=== PATIENT | male | born 1970 | race Caucasian/White ===

== ENCOUNTER 2020-10-30 06:25 | Outpatient (REF) | payer OTHER, SELFPAY ==
[2020-10-30 07:15] LABS: MANUAL DIFF FLAG NO
[2020-10-30 07:32] LABS: Estimated Average Glucose 94 mg/dL; Hemoglobin A1c % 4.9 %
[2020-10-30 07:34] LABS: Alanine Aminotransferase 29 U/L (0-40); Albumin Level 4.5 g/dL (3.5-5.0); Alkaline Phosphatase 61 U/L (39-117); Anion Gap 11 (12-20); Aspartate Amino Transferase 19 U/L (5-37); Bilirubin Total 0.5 mg/dL (0.0-1.0); Blood Urea Nitrogen 23 mg/dL (9-16); Calcium 8.9 mg/dL (8.4-10.2); Carbon Dioxide 28 mmol/L (22-29); Chloride 108 mmol/L (96-108); Cholesterol 230 mg/dL; Estimated Glomerular Filt Rate > 60; Glucose Fasting 116 mg/dL (60-99); HDL Cholesterol 52 mg/dL; LDL Cholesterol Calculated 163 mg/dl; Potassium 4.3 mmol/l (3.3-5.1); Sodium 143 mmol/L (135-145); Total Protein 7.1 g/dL (6.5-8.0); Triglycerides 75 mg/dL
[2020-10-30 07:35] LABS: Basophils Percent Auto 0.2 % (0-2); Eosinophils Absolute Auto 0.1 X10*3/uL (0.0-0.4); Eosinophils Percent Auto 1.8 % (0-4); Hematocrit 42.2 % (42-52); Imm Gran Abs Auto 0.01 X10*3/uL (0.00-0.03); Imm Gran Pct Auto 0.2 % (0.0-0.4); Lymphocytes Absolute Auto 1.4 X10*3/uL (1.2-4.9); Lymphocytes Percent Auto 27.7 % (20-40); Mean Corpuscular HGB Conc 33.2 g/dl (31.0-36.0); Mean Corpuscular Hemoglobin 29.6 pg (27.0-33.0); Mean Corpuscular Volume 89.2 fL (80-98); Mean Platelet Volume 10.4 fL (9.4-12.4); Monocytes Absolute Auto 0.5 X10*3/uL (0.1-1.2); Monocytes Percent Auto 10.4 % (2-11); Neutrophils Absolute Auto 2.9 X10*3/uL (2.0-8.3); Neutrophils Percent Auto 59.7 % (45-73); Platelet Count 194 X10*3/uL (160-400); Red Blood Count 4.73 X10*6/uL (4.60-5.80); Red Cell Distribution Width 12.3 % (11.0-16.0); White Blood Count 4.9 X10*3/uL (4.8-10.8)
[2020-10-30 07:43] LABS: Glucose Urine UA NEG (NEG); Leukocyte Esterase Urine NEG (NEG); Nitrite Urine NEG (NEG); PH 5.5 (5.0-8.0); Specific Gravity - Urine >= 1.030 (1.005-1.025); Urine Blood 3+ (NEG); Urine Ketones NEG (NEG); Urine Protein NEG (NEG-TRACE)
[2020-10-30 07:46] LABS: Appearance Urine CLEAR; Color Urine YELLOW
[2020-10-30 07:55] LABS: Prostate Specific Antigen 0.64 ng/mL (<0.05-4.0)
[2020-10-30 08:02] LABS: WBC Urine 0 /HPF (0-4)
[2020-10-30 08:03] LABS: Hyaline Casts Urine 0-2 /LPF; Mucus Urine TRACE /LPF
[2020-10-30 08:22] LABS: Creatinine Urine 206.17 mg/dL
== END 2020-10-30 06:26 | disposition home or self-care (01) ==
LOC: HO.LAB 06:25
PROVIDERS: Visit Provider Internal Medicine
DX: Z00.00 Encounter for general adult medical examination without abnormal findings (principal); D64.9 Anemia, unspecified; R31.9 Hematuria, unspecified; R79.89 Other specified abnormal findings of blood chemistry; R73.03 Prediabetes; E78.00 Pure hypercholesterolemia, unspecified; Z12.5 Encounter for screening for malignant neoplasm of prostate
CPT/HCPCS: 36415; 80053; 80061; 81001; 82043; 83036; 84153; 85025

== ENCOUNTER 2021-11-12 10:37 | Outpatient (REF) | payer OTHER, SELFPAY ==
[2021-11-12 10:43] LABS: MANUAL DIFF FLAG NO
[2021-11-12 11:02] LABS: Basophils Percent Auto 0.2 % (0-2); Eosinophils Absolute Auto 0.1 X10*3/uL (0.0-0.4); Eosinophils Percent Auto 2.4 % (0-4); Hematocrit 38.4 % (42.0-52.0); Hemoglobin 12.8 g/dl (14.0-18.0); Imm Gran Abs Auto 0.01 X10*3/uL (0.00-0.03); Imm Gran Pct Auto 0.2 % (0.0-0.4); Lymphocytes Absolute Auto 1.2 X10*3/uL (1.2-4.9); Lymphocytes Percent Auto 25.9 % (20-40); Mean Corpuscular HGB Conc 33.3 g/dl (31.0-36.0); Mean Corpuscular Hemoglobin 29.6 pg (27.0-33.0); Mean Corpuscular Volume 88.9 fL (80.0-98.0); Monocytes Absolute Auto 0.5 X10*3/uL (0.1-1.2); Monocytes Percent Auto 10.3 % (2-11); Neutrophils Absolute Auto 2.8 x10*3/uL (2.0-8.3); Platelet Count 185 X10*3/uL (160-400); Red Blood Count 4.32 X10*6/uL (4.60-5.80); Red Cell Distribution Width 12.6 % (11.0-16.0); White Blood Count 4.6 X10*3/uL (4.8-10.8)
[2021-11-12 11:06] LABS: Appearance Urine CLEAR; Color Urine YELLOW; Glucose Urine UA NEG (NEG); Leukocyte Esterase Urine NEG (NEG); Nitrite Urine NEG (NEG); Specific Gravity - Urine 1.025 (1.005-1.025); Urine Blood 3+ (NEG); Urine Ketones NEG (NEG); Urine Protein TRACE MG/DL (NEG-TRACE)
[2021-11-12 11:27] LABS: WBC Urine 0 /HPF (0-4)
[2021-11-12 11:28] LABS: Squamous Epithelial Cell Urine TRACE /LPF
[2021-11-12 11:41] LABS: Alanine Aminotransferase 32 U/L (0-40); Albumin Level 4.1 g/dL (3.5-5.0); Alkaline Phosphatase 57 U/L (39-117); Anion Gap 14 (12-20); Aspartate Amino Transferase 23 U/L (5-37); Bilirubin Total 0.5 mg/dL (0.0-1.0); Blood Urea Nitrogen 20 mg/dL (9-16); Calcium 9.1 mg/dL (8.4-10.2); Carbon Dioxide 25 mmol/L (22-29); Chloride 106 mmol/L (96-108); Cholesterol 234 mg/dL; Estimated Glomerular Filt Rate 53; Glucose Fasting 104 mg/dL (60-99); HDL Cholesterol 45 mg/dL; LDL Cholesterol Calculated 160 mg/dl; Potassium 4.2 mmol/L (3.3-5.1); Sodium 141 mmol/L (135-145); Total Protein 6.7 g/dL (6.5-8.0); Triglycerides 146 mg/dL
[2021-11-12 11:42] LABS: Microalbum/Creatinine Ratio Ur 50.8 ug/mg cr
[2021-11-12 11:55] LABS: Estimated Average Glucose 97 mg/dL
[2021-11-12 12:18] LABS: PSA,Total (Free>4and<10) 0.46 ng/mL (0.00-4.00)
== END 2021-11-12 10:38 | disposition home or self-care (01) ==
LOC: HO.LNP 10:37
PROVIDERS: PCP Internal Medicine; Visit Provider Internal Medicine
DX: Z00.00 Encounter for general adult medical examination without abnormal findings (principal); R73.03 Prediabetes; E78.00 Pure hypercholesterolemia, unspecified
CPT/HCPCS: 80053; 80061; 81001; 81003; 82043; 83036; 84153; 85025

== ENCOUNTER 2022-11-14 11:47 | Outpatient (REF) | payer OTHER, SELFPAY ==
[2022-11-14 11:50] LABS: MANUAL DIFF FLAG NO
[2022-11-14 12:24] LABS: Basophils Percent Auto 0.5 % (0-2); Eosinophils Absolute Auto 0.1 X10*3/uL (0.0-0.4); Eosinophils Percent Auto 2.6 % (0-4); Hematocrit 39.8 % (42.0-52.0); Imm Gran Abs Auto 0.01 X10*3/uL (0.00-0.03); Imm Gran Pct Auto 0.3 % (0.0-0.4); Lymphocytes Absolute Auto 1.2 X10*3/uL (1.2-4.9); Lymphocytes Percent Auto 29.8 % (20-40); Mean Corpuscular HGB Conc 32.7 g/dl (31.0-36.0); Mean Corpuscular Hemoglobin 29.1 pg (27.0-33.0); Mean Corpuscular Volume 89.2 fL (80.0-98.0); Mean Platelet Volume 10.9 fL (9.4-12.4); Monocytes Absolute Auto 0.5 X10*3/uL (0.1-1.2); Monocytes Percent Auto 11.9 % (2-11); Neutrophils Absolute Auto 2.1 x10*3/uL (2.0-8.3); Neutrophils Percent Auto 54.9 % (45-73); Platelet Count 177 X10*3/uL (160-400); Red Blood Count 4.46 X10*6/uL (4.60-5.80); Red Cell Distribution Width 12.5 % (11.0-16.0); White Blood Count 3.9 X10*3/uL (4.8-10.8)
[2022-11-14 12:26] LABS: Appearance Urine Clear; Color Urine Yellow; Glucose Urine UA Negative (Negative); Leukocyte Esterase Urine Negative (Negative); Nitrite Urine Negative (Negative); PH 5.5 (5.0-9.0); Specific Gravity - Urine 1.025 (1.005-1.025); UMIC TRIGGER UACC YES; Urine Blood Moderate (2+) (Negative); Urine Ketones Negative (Negative); Urine Protein Trace mg/dL (Neg-Trace)
[2022-11-14 12:30] LABS: Bacteria Urine None Seen (None Seen); Hyaline Casts Urine 0-2 /LPF (0-2); Squamous Epithelial Cell Urine 0-2 /HPF (0-2); WBC Urine 0-5 /HPF (0-5)
[2022-11-14 12:40] LABS: Estimated Average Glucose 97 mg/dL
[2022-11-14 12:52] LABS: Alanine Aminotransferase 29 U/L (0-40); Albumin Level 4.2 g/dL (3.5-5.0); Alkaline Phosphatase 53 U/L (39-117); Anion Gap 13 (12-20); Aspartate Amino Transferase 24 U/L (5-37); Blood Urea Nitrogen 26 mg/dL (9-16); Calcium 8.9 mg/dL (8.4-10.2); Carbon Dioxide 25 mmol/L (22-29); Chloride 108 mmol/L (96-108); Cholesterol 218 mg/dL; Estimated Glomerular Filt Rate 50; Glucose Fasting 119 mg/dL (60-99); HDL Cholesterol 48 mg/dL; LDL Cholesterol Calculated 153 mg/dl; Sodium 142 mmol/L (135-145); Total Protein 6.5 g/dL (6.5-8.0); Triglycerides 86 mg/dL
[2022-11-14 13:09] LABS: PSA,Total (Free>4and<10) 0.38 ng/mL (0.00-4.00)
[2022-11-14 13:46] LABS: Microalbum/Creatinine Ratio Ur 35.7 ug/mg cr
== END 2022-11-14 11:48 | disposition home or self-care (01) ==
LOC: HO.LNP 11:47
PROVIDERS: Visit Provider Internal Medicine
DX: Z00.00 Encounter for general adult medical examination without abnormal findings (principal); Z12.5 Encounter for screening for malignant neoplasm of prostate; R73.03 Prediabetes; E78.00 Pure hypercholesterolemia, unspecified
CPT/HCPCS: 80053; 80061; 81001; 81003; 82043; 83036; 84153; 85025

== ENCOUNTER 2022-12-18 10:49 | Outpatient (REF) | payer OTHER, SELFPAY ==
[2022-12-18 10:54] LABS: MANUAL DIFF FLAG NO
[2022-12-18 11:08] LABS: Basophils Percent Auto 0.4 % (0-2); Eosinophils Absolute Auto 0.1 X10*3/uL (0.0-0.4); Eosinophils Percent Auto 2.4 % (0-4); Hemoglobin 12.9 g/dl (14.0-18.0); Imm Gran Abs Auto 0.03 X10*3/uL (0.00-0.03); Imm Gran Pct Auto 0.6 % (0.0-0.4); Lymphocytes Absolute Auto 1.3 X10*3/uL (1.2-4.9); Lymphocytes Percent Auto 23.4 % (20-40); Mean Corpuscular HGB Conc 32.3 g/dl (31.0-36.0); Mean Corpuscular Hemoglobin 28.4 pg (27.0-33.0); Mean Corpuscular Volume 87.9 fL (80.0-98.0); Monocytes Absolute Auto 0.5 X10*3/uL (0.1-1.2); Monocytes Percent Auto 9.9 % (2-11); Neutrophils Absolute Auto 3.4 x10*3/uL (2.0-8.3); Neutrophils Percent Auto 63.3 % (45-73); Platelet Count 176 X10*3/uL (160-400); Red Blood Count 4.55 X10*6/uL (4.60-5.80); Red Cell Distribution Width 12.3 % (11.0-16.0); White Blood Count 5.4 X10*3/uL (4.8-10.8)
[2022-12-18 11:12] LABS: Blood Urea Nitrogen 21 mg/dL (9-16); Estimated Glomerular Filt Rate 52
== END 2022-12-18 10:50 | disposition home or self-care (01) ==
LOC: HO.LNP 10:49
PROVIDERS: Visit Provider Internal Medicine
DX: D70.9 Neutropenia, unspecified (principal); R79.9 Abnormal finding of blood chemistry, unspecified
CPT/HCPCS: 82565; 84520; 85025

== ENCOUNTER 2023-10-20 11:37 | Outpatient (REF) | payer OTHER, SELFPAY ==
[2023-10-20 11:41] LABS: MANUAL DIFF FLAG NO
[2023-10-20 12:00] LABS: Basophils Percent Auto 0.3 % (0-2); Eosinophils Absolute Auto 0.1 X10*3/uL (0.0-0.4); Hematocrit 40.1 % (42.0-52.0); Hemoglobin 13.5 g/dl (14.0-18.0); Imm Gran Abs Auto 0.04 X10*3/uL (0.00-0.03); Imm Gran Pct Auto 0.6 % (0.0-0.4); Lymphocytes Absolute Auto 1.5 X10*3/uL (1.2-4.9); Lymphocytes Percent Auto 23.1 % (20-40); Mean Corpuscular HGB Conc 33.7 g/dl (31.0-36.0); Mean Corpuscular Hemoglobin 29.5 pg (27.0-33.0); Mean Corpuscular Volume 87.7 fL (80.0-98.0); Mean Platelet Volume 11.1 fL (9.4-12.4); Monocytes Absolute Auto 0.6 X10*3/uL (0.1-1.2); Monocytes Percent Auto 9.9 % (2-11); Neutrophils Absolute Auto 4.1 x10*3/uL (2.0-8.3); Neutrophils Percent Auto 64.1 % (45-73); Platelet Count 187 X10*3/uL (160-400); Red Blood Count 4.57 X10*6/uL (4.60-5.80); Red Cell Distribution Width 12.6 % (11.0-16.0); White Blood Count 6.4 X10*3/uL (4.8-10.8)
[2023-10-20 12:03] LABS: Appearance Urine Clear; Color Urine Yellow; Glucose Urine UA Negative (Negative); Leukocyte Esterase Urine Negative (Negative); Nitrite Urine Negative (Negative); PH 5.5 (5.0-9.0); UMIC TRIGGER UACC YES; Urine Blood Moderate (2+) (Negative); Urine Ketones Negative (Negative); Urine Protein Negative (Neg-Trace)
[2023-10-20 12:08] LABS: Bacteria Urine None Seen (None Seen); Hyaline Casts Urine 0-2 /LPF (0-2); Squamous Epithelial Cell Urine 0-2 /HPF (0-2); WBC Urine 0-5 /HPF (0-5)
[2023-10-20 12:14] LABS: Estimated Average Glucose 97 mg/dL
[2023-10-20 12:30] LABS: Alanine Aminotransferase 29 U/L (0-40); Albumin Level 4.3 g/dL (3.5-5.0); Alkaline Phosphatase 58 U/L (39-117); Anion Gap 13 (12-20); Aspartate Amino Transferase 23 U/L (5-37); Bilirubin Total 0.7 mg/dL (0.0-1.0); Blood Urea Nitrogen 29 mg/dL (9-16); Carbon Dioxide 27 mmol/L (22-29); Chloride 104 mmol/L (96-108); Cholesterol 248 mg/dL (<200); Estimated Glomerular Filt Rate 54; Glucose Fasting 101 mg/dL (60-99); HDL Cholesterol 45 mg/dL (>40); LDL Cholesterol Calculated 164 mg/dL (<100); Sodium 140 mmol/L (135-145); Total Protein 7.2 g/dL (6.5-8.0); Triglycerides 195 mg/dL (<150)
[2023-10-20 12:33] LABS: Creatinine Urine 144.13 mg/dL; Microalbum/Creatinine Ratio Ur 30.5 ug/mg cr (<30)
[2023-10-20 12:50] LABS: PSA,Total (Free>4and<10) 0.54 ng/mL (0.00-4.00)
== END 2023-10-20 11:38 | disposition home or self-care (01) ==
LOC: HO.LNP 11:37
PROVIDERS: Visit Provider Internal Medicine
DX: Z00.00 Encounter for general adult medical examination without abnormal findings (principal); Z12.5 Encounter for screening for malignant neoplasm of prostate; R73.03 Prediabetes; E78.00 Pure hypercholesterolemia, unspecified; D70.9 Neutropenia, unspecified; N40.0 Benign prostatic hyperplasia without lower urinary tract symptoms
CPT/HCPCS: 80053; 80061; 81001; 82043; 82570; 83036; 84153; 85025

== ENCOUNTER 2024-01-26 11:03 | Outpatient (REF) | payer OTHER, SELFPAY ==
[2024-01-26 12:31] LABS: Blood Urea Nitrogen 19 mg/dL (9-16); Estimated Glomerular Filt Rate 57
== END 2024-01-26 11:04 | disposition home or self-care (01) ==
LOC: HO.LNP 11:03
PROVIDERS: Visit Provider Internal Medicine
DX: R79.9 Abnormal finding of blood chemistry, unspecified (principal)
CPT/HCPCS: 82565; 84520

== ENCOUNTER 2024-08-08 10:44 | Outpatient (REF) | payer OTHER, SELFPAY ==
[2024-08-08 12:06] LABS: Estimated Average Glucose 105 mg/dL; Hemoglobin A1C 112.5891 umol/L; Hemoglobin A1c % 5.3 % (<6.0); Total Hemoglobin (HGBA1C) 3298.9661 umol/L
[2024-08-08 12:41] LABS: Alanine Aminotransferase 63 U/L (0-40); Albumin Level 4.2 g/dL (3.5-5.0); Alkaline Phosphatase 60 U/L (39-117); Aspartate Amino Transferase 42 U/L (5-37); Bilirubin Direct 0.2 mg/dL (0.0-0.5); Bilirubin Total 0.6 mg/dL (0.0-1.0); Cholesterol 177 mg/dL (<200); Glucose Fasting 109 mg/dL (60-99); HDL Cholesterol 45 mg/dL (>40); LDL Cholesterol Calculated 96 mg/dL (<100); Total Protein 6.8 g/dL (6.5-8.0); Triglycerides 182 mg/dL (<150)
[2024-08-08 13:25] LABS: Reflex LDLD? No
== END 2024-08-08 10:45 | disposition home or self-care (01) ==
LOC: HO.LNP 10:44
PROVIDERS: Visit Provider Internal Medicine
DX: R73.03 Prediabetes (principal); E78.00 Pure hypercholesterolemia, unspecified
CPT/HCPCS: 80061; 80076; 82947; 83036

== ENCOUNTER 2024-10-24 12:02 | Outpatient (REF) | payer OTHER, SELFPAY ==
[2024-10-24 12:10] LABS: MANUAL DIFF FLAG NO
[2024-10-24 12:31] LABS: Appearance Urine Clear; Color Urine Yellow; Glucose Urine UA Negative (Negative); Leukocyte Esterase Urine Negative (Negative); Nitrite Urine Negative (Negative); PH 5.5 (5.0-9.0); Specific Gravity - Urine 1.015 (1.005-1.025); UMIC TRIGGER UACC YES; Urine Blood Moderate (2+) (Negative); Urine Ketones Negative (Negative); Urine Protein Negative (Neg-Trace)
[2024-10-24 12:33] LABS: Basophils Percent Auto 0.4 % (0-2); Eosinophils Absolute Auto 0.1 X10*3/uL (0.0-0.4); Eosinophils Percent Auto 2.1 % (0-4); Hematocrit 42.6 % (42.0-52.0); Hemoglobin 14.3 g/dl (14.0-18.0); Imm Gran Abs Auto 0.02 X10*3/uL (0.00-0.03); Imm Gran Pct Auto 0.4 % (0.0-0.4); Lymphocytes Absolute Auto 1.6 X10*3/uL (1.2-4.9); Lymphocytes Percent Auto 28.4 % (20-40); Mean Corpuscular HGB Conc 33.6 g/dl (31.0-36.0); Mean Corpuscular Hemoglobin 29.6 pg (27.0-33.0); Mean Corpuscular Volume 88.2 fL (80.0-98.0); Mean Platelet Volume 10.6 fL (9.4-12.4); Monocytes Absolute Auto 0.5 X10*3/uL (0.1-1.2); Monocytes Percent Auto 8.2 % (2-11); Neutrophils Absolute Auto 3.4 x10*3/uL (2.0-8.3); Neutrophils Percent Auto 60.5 % (45-73); Platelet Count 196 X10*3/uL (160-400); Red Blood Count 4.83 X10*6/uL (4.60-5.80); Red Cell Distribution Width 12.3 % (11.0-16.0); White Blood Count 5.6 X10*3/uL (4.8-10.8)
[2024-10-24 12:36] LABS: Bacteria Urine None Seen (None Seen); Hyaline Casts Urine 0-2 /LPF (0-2); Squamous Epithelial Cell Urine 0-2 /HPF (0-2); WBC Urine 0-5 /HPF (0-5)
[2024-10-24 12:54] LABS: Alanine Aminotransferase 39 U/L (0-40); Albumin Level 4.3 g/dL (3.5-5.0); Alkaline Phosphatase 61 U/L (39-117); Anion Gap 11 (12-20); Aspartate Amino Transferase 27 U/L (5-37); Bilirubin Total 0.8 mg/dL (0.0-1.0); Blood Urea Nitrogen 31 mg/dL (9-16); Calcium 9.1 mg/dL (8.4-10.2); Carbon Dioxide 25 mmol/L (22-29); Chloride 107 mmol/L (96-108); Cholesterol 189 mg/dL (<200); Estimated Glomerular Filt Rate 50; Glucose Fasting 107 mg/dL (60-99); HDL Cholesterol 41 mg/dL (>40); LDL Cholesterol Calculated 119 mg/dL (<100); Potassium 4.2 mmol/L (3.3-5.1); Sodium 139 mmol/L (135-145); Total Protein 7.2 g/dL (6.5-8.0); Triglycerides 148 mg/dL (<150)
[2024-10-24 13:08] LABS: Estimated Average Glucose 103 mg/dL; Hemoglobin A1C 123.8151 umol/L; Hemoglobin A1c % 5.2 % (<6.0); Total Hemoglobin (HGBA1C) 3750.8208 umol/L
[2024-10-24 13:09] LABS: Creatinine Urine 137.27 mg/dL; Microalbum/Creatinine Ratio Ur 40.7 ug/mg cr (<30)
[2024-10-24 13:16] LABS: PSA,Total (Free>4and<10) 0.51 ng/mL (0.00-4.00)
--- OUTSIDE RECORDS SUMMARY | 2024-10-24 13:59 | XMS_ITS ---
Author Organization Ramón Lieberman MD Address [address] [place], [place] [id number] Care Team Providers Care Supervisor [employer] Name Role Phone Ramón Lieberman Primary Care Provider RESULTS Component Value Reference Range Notes Complete Blood Count Auto Di ff (Not yet reviewed by provider) Interpretation: Performing Lab:[facility], [address] [place] [phone] Notes/Report: White Blood Count 5.6 4.8-10.8 X10*3/uL Red Blood Count 4.83 4.60-5.80 X10*6/uL Hemoglobin 14.3 14.0-18.0 g/dl Hematocrit 42.6 42.0-52.0 % Mean Corpuscular Volume 88.2 80.0-98.0 fL Mean Corpuscular Hemoglobin 29.6 27.0-33.0 pg Mean Corpuscular HGB Conc 33.6 31.0-36.0 g/dl Red Cell Distribution Width 12.3 11.0-16.0 % Platelet Count 196 160-400 X10*3/uL Mean Platelet Volume 10.6 9.4-12.4 fL Neutrophils Percent Auto 60.5 45-73 % Imm Gran Pct Auto 0.4 0.0-0.4 % Lymphocytes Percent Auto 28.4 20-40 % Monocytes Percent Auto 8.2 2-11 % Eosinophils Percent Auto 2.1 0-4 % Basophils Percent Auto 0.4 0-2 % NRBC Pct Auto 0.0 0.0-0.2 /100WBC Neutrophils Absolute Auto 3.4 2.0-8.3 x10*3/u L Imm Gran Abs Auto 0.02 0.00-0.03 X10*3/uL Lymphocytes Absolute Auto 1.6 1.2-4.9 X10*3/u L Monocytes Absolute Auto 0.5 0.1-1.2 X10*3/uL Eosinophils Absolute Auto 0.1 0.0-0.4 X10*3/u L Basophils Absolute Auto 0.0 0.0-0.2 X10*3/uL NRBC Abs Auto 0.000 0.0-0.012 X10*3/uL Comprehensive Sherrill. Panel Fa st (Not yet reviewed by provider) Interpretation: Performing Lab:[facility], [address] [place] [phone] Notes/Report: Sodium 139 135-145 mmol/L Potassium 4.2 3.3-5.1 mmol/L Chloride 107 96-108 mmol/L Carbon Dioxide 25 22-29 mmol/L Anion Gap 11 12-20 Blood Urea Nitrogen 31 9-16 mg/dL Creatinine 1.46 0.5-1.4 mg/dL Estimated Glomerular Filt Rate 50 Chronic Kidney Disease: Estimated GFR < 60 mL/min/1.73m2 Severe Kidney Disease: Estimated GFR < 15 mL/min/1.73m2 Glucose Fasting 107 60-99 mg/dL A fasting glucose from 100-125 mg/dl is considered impaired (pre-diabetes). Calcium 9.1 8.4-10.2 mg/dL Bilirubin Total 0.8 0.0-1.0 mg/dL Aspartate Amino Transferase 27 5-37 U/L Alanine Aminotransferase 39 0-40 U/L Total Protein 7.2 6.5-8.0 g/dL Albumin Level 4.3 3.5-5.0 g/dL Alkaline Phosphatase 61 39-117 U/L Lipid Panel (Not yet reviewe d by provider) Interpretation: Performing Lab:[facility], [address] [place] [phone] Notes/Report: Triglycerides 148 <150 mg/dL Desirable Triglyceride: less than 150 mg/dL Borderline High Triglyceride 150-199 mg/dL High Triglyceride: 200-499 mg/dL Very High Triglyceride: greater than or equal to 5OO mg/dL Cholesterol 189 <200 mg/dL Desirable Cholesterol: less than 200 mg/dL Borderline High Cholesterol: 200-239 mg/dL High Cholesterol: greater than 239 mg/dL LDL Cholesterol Calculated 119 <100 mg/dL Desirable LDL: less than 100 mg/dL Near Optimal/Above Optimal LDL: 110-129 mg/dL Borderline High LDL: 130-159 mg/dL High LDL: 160-189 mg/dL Very High LDL: greater than or equal to 190 mg/dL HDL Cholesterol 41 >40 mg/dL Desirable HDL: greater than 40 mg/dL Note: This HDL assay may give artificially low results in patients with liver disease. PSA,Total (Free>4and<10) (No t yet reviewed by provider) Interpretation: Performing Lab:[address] [phone] Notes/Report: PSA,Total (Free>4and<10) 0.51 0.00-4.00 ng/mL A Free PSA was not performed: The percentage of Free PSA can be used to enhance the differentiation of prostate cancer from benign prostatic disease in subjects whose PSA levels are between 4.0 and 10.0 ng/mL. For subjects whose PSA levels are below 4.0 or above 10.0 ng/mL, the risk of prostate cancer is determined on the basis of the PSA alone. Therefore the % Free PSA is recommended only for those subjects whose PSA levels are between 4.0 and 10.0 ng/mL. PSA methodology: Juarez Alinity i Chemiluminescent Microparticle Immunoassay (CMIA) Microalbumin, Random (Not ye t reviewed by provider) Interpretation: Performing Lab:[address] [phone] Notes/Report: Creatinine Urine 137.27 Microalbumin Urine 56.0 Microalbum/Creatinine Ratio Ur 40.7 <30 ug/mg cr Albumin/Creatinine Ratio Reference Ranges: Normal: < 30 ug/mg creatinine Microalbuminuria: 30 - 300 ug/mg creatinine Clinical Albuminuria: > 300 ug/mg creatinine Hemoglobin A1c (Not yet revi ewed by provider) Interpretation: Performing Lab:[facility], [address] [place] [phone] Notes/Report: Hemoglobin A1c % 5.2 <6.0 % Hemoglobin A1C Reference Range Adults: 4.8 - 6.0 % Non diabetic: < 6.0 % Goal: < 7.0 % Additional Action Suggested: > 8.0 % Note: Hemoglobin A1c results are invalid for patients with abnormal amounts of HbF. Blood transfusions may impact the HbA1c concentration in the patient sample. Estimated Average Glucose 103 eAG = Estimated average glucose which is %A1C expressed as average glucose, using the formula of the K9B-Fgqinxp Average Glucose study (ADAG), Diabetes Care, Vol.31,#8, 2007 UA ClnCatch+Micro w/rflx Cul t (Not yet reviewed by provider) Interpretation: Performing Lab:[facility], [address] [place] [phone] Notes/Report: Urine, Clean Catch Color Urine Yellow Appearance Urine Clear PH 5.5 5.0-9.0 Glucose Urine UA Negative Negative mg/dL Urine Blood Moderate (2+) Negative Specific [place] - Urine 1.015 1.005-1.025 Urine Protein Negative Neg-Trace mg/dL Urine Ketones Negative Negative mg/dL Nitrite Urine Negative Negative Leukocyte Esterase Urine Negative Negative RBC Urine 11-20 0-2 /HPF WBC Urine 0-5 0-5 /HPF Squamous Epithelial Cell Urine 0-2 0-2 /HPF Bacteria Urine None Seen None Seen Hyaline Casts Urine 0-2 0-2 /LPF REASON FOR VISIT yearly fasting labs Encounters Encounter Location Date Provider Diagnosis Ramón Lieberman MD [address] [place], [place] [phone] 10/24/2024 Ramón Lieberman Blood tests for rout ine general physical examination Z00.00 ; Pure hypercholesterolemia E78.00 ; Prediabetes R73.03 ; Neutropenia, unspecified type D70.9 and Prostatism N40.0 ASSESSMENTS Encounter Date Diagnosis Assessment Notes Treatment Notes Treatment Clinical Notes 10/24/2024 Blood tests for rout ine general physical examination (ICD-10 - Z00.00) 10/24/2024 Pure hypercholestero lemia (ICD-10 - E78.00) 10/24/2024 Prediabetes (ICD-10 - R73.03) 10/24/2024 Neutropenia, unspeci fied type (ICD-10 - D70.9) 10/24/2024 Prostatism (ICD-10 - N40.0) PLAN OF TREATMENT Pending Test Test Name Order Date Complete Blood Count Auto Diff 5 Comprehensive Sherrill. Panel Fast 5 Lipid Panel 10/24/2024 PSA,Total (Free>4and<10) 10/24/2024 Microalbumin, Random 10/24/2024 Hemoglobin A1c 10/24/2024 UA ClnCatch+Micro w/rflx Cult 10/24/2024 Next Appt Details Provider Name:Ramón mae, 10/31/2024 01:00:00 PM, [address] [place] [address], [address], [place], [phone],
--- OUTSIDE RECORDS SUMMARY | 2024-10-24 13:59 | XMS_ITS ---
Author Organization Ramón Lieberman MD Address [address] [place] [phone] Care Team Providers Care Newspaper Copy Editor Name Role Phone Ramón Lieberman Primary Care Provider ALLERGIES No Known Allergies REASON FOR VISIT 6 month MEDICATIONS Medication SIG (Take, Route, Frequency, Duration) Notes Start Date End Date Status Tamsulosin HCl 0.4 MG 1 capsule Orally O nce a day for 90 days 11/20/2022 Not-Taking Atorvastatin Calcium 20 MG 1 tablet Orally Once a day for 90 days 05/06/2024 Active VITAL SIGNS BMI 27.44 kg/m2 05/06/2024 Blood pressure systolic 104 mm Hg 05/06/20 24 Blood pressure diastolic 66 mm Hg 024 Height 66 in 05/06/2024 Weight 170 lbs 05/06/2024 Encounters Encounter Location Date Provider Diagnosis Ramón Lieberman MD [address] [place] [id number] 05/06/2024 Ramón Lieberman Pure hypercholestero lemia E78.00 and Elevated BUN R79.9 ASSESSMENTS Encounter Date Diagnosis Assessment Notes Treatment Notes Treatment Clinical Notes 05/06/2024 Pure hypercholestero lemia (ICD-10 - E78.00) eats poorly 05/06/2024 Elevated BUN (ICD-10 - R79.9) has come back down. will observe PLAN OF TREATMENT Medication Medication Name Sig Start Date Stop Date Notes Atorvastatin Calcium 20 MG 1 tablet Oral ly Once a day for 90 days 05/06/2024 Treatment Notes Assessment Notes Pure hypercholesterolemia eats poorly Elevated BUN has come back down. will observe Next Appt Details Provider Name:Ramón Phillips tu, 10/31/2024 01:00:00 PM, [address], [address], [place], [place], [phone], Progress Notes * Examination Category Sub-Category Detail Notes General Examination GENERAL APPEARANCE: alert, w ell hydrated, in no distress HEART: regular rate and rhy thm, no murmurs, rubs, gallops LUNGS: no wheezes, rales, r honchi, good air movement, clear to auscultation bilaterally SKIN: good turgor
--- OUTSIDE RECORDS SUMMARY | 2024-10-24 13:59 | XMS_ITS | Patient Health Record ---
Author Organization Ramón Lieberman MD Address [address] [place], [place] [phone] Care Team Providers Care Supervisor [employer] Name Role Phone Ramón Lieberman Primary Care Provider ALLERGIES No Known Allergies RESULTS Component Value Reference Range Notes Occult Blood, Stool, Guaiac Reviewed date:10/27/2023 03:39:12 PM Interpretation:Negative Performing Lab: Notes/Report: Negative Occult Blood, Stool, Guaiac Luis Carlos Stiles Reviewed date:01/26/2024 02:05:36 PM Interpretation: Performing Lab:[facility], [address] [place] [phone] Notes/Report: Luis Carlos Stiles See Note Specimen held untested for 24 hours; Call to request Chemistry testing. Blood Urea Nitrogen Reviewed date:01/26/2024 02:06:20 PM Interpretation: Performing Lab:[facility], [address] [place] [phone] Notes/Report: Blood Urea Nitrogen 19 9-16 mg/dL Creatinine Reviewed date:01/26/2024 02:05:53 PM Interpretation: Performing Lab:[facility], [address] [place] [phone] Notes/Report: Creatinine 1.31 0.5-1.4 mg/dL Estimated Glomerular Filt Rate 57 NOTE: For -[place] individuals, multiply the result by 1.210. Chronic Kidney Disease: Estimated GFR < 60 mL/min/1.73m2 Severe Kidney Disease: Estimated GFR < 15 mL/min/1.73m2 Luis Carlos Stiles Reviewed date:08/08/2024 01:02:04 PM Interpretation: Performing Lab:[facility], [address] [place] [phone] Notes/Report: Hold Gold See Note Specimen held untested for 24 hours; Call to request Chemistry testing. Liver Panel Reviewed date:08/08/2024 04:45:12 PM Interpretation: Performing Lab:[facility], [address] [place] [phone] Notes/Report: Bilirubin Total 0.6 0.0-1.0 mg/dL Bilirubin Direct 0.2 0.0-0.5 mg/dL Aspartate Amino Transferase 42 5-37 U/L Alanine Aminotransferase 63 0-40 U/L Total Protein 6.8 6.5-8.0 g/dL Albumin Level 4.2 3.5-5.0 g/dL Alkaline Phosphatase 60 39-117 U/L Glucose Fasting Reviewed date:08/08/2024 04:45:21 PM Interpretation: Performing Lab:[facility], [address] [place] [phone] Notes/Report: Glucose Fasting 109 60-99 mg/dL A fasting glucose from 100-125 mg/dl is considered impaired (pre-diabetes). Lipid Panel with Reflex Reviewed date:08/08/2024 04:45:41 PM Interpretation: Performing Lab:[facility], [address] [place] [phone] Notes/Report: Triglycerides 182 <150 mg/dL Desirable Triglyceride: less than 150 mg/dL Borderline High Triglyceride 150-199 mg/dL High Triglyceride: 200-499 mg/dL Very High Triglyceride: greater than or equal to 5OO mg/dL Cholesterol 177 <200 mg/dL Desirable Cholesterol: less than 200 mg/dL Borderline High Cholesterol: 200-239 mg/dL High Cholesterol: greater than 239 mg/dL LDL Cholesterol Calculated 96 <100 mg/dL Desirable LDL: less than 100 mg/dL Near Optimal/Above Optimal LDL: 110-129 mg/dL Borderline High LDL: 130-159 mg/dL High LDL: 160-189 mg/dL Very High LDL: greater than or equal to 190 mg/dL HDL Cholesterol 45 >40 mg/dL Desirable HDL: greater than 40 mg/dL Note: This HDL assay may give artificially low results in patients with liver disease. Hemoglobin A1c Reviewed date:08/08/2024 01:01:36 PM Interpretation: Performing Lab:[facility], [address] [place] [phone] Notes/Report: Hemoglobin A1c % 5.3 <6.0 % Hemoglobin A1C Reference Range Adults: 4.8 - 6.0 % Non diabetic: < 6.0 % Goal: < 7.0 % Additional Action Suggested: > 8.0 % Note: Hemoglobin A1c results are invalid for patients with abnormal amounts of HbF. Blood transfusions may impact the HbA1c concentration in the patient sample. Estimated Average Glucose 105 eAG = Estimated average glucose which is %A1C expressed as average glucose, using the formula of the M6C-Arqxkrl Average Glucose study (ADAG), Diabetes Care, Vol.31,#8, 2007 Complete Blood Count Auto Di ff (Not yet reviewed by provider) Interpretation: Performing Lab:[facility], [address] [place] [phone] Notes/Report: White Blood Count 5.6 4.8-10.8 X10*3/uL [...] NRBC Abs Auto 0.000 0.0-0.012 X10*3/uL Comprehensive Tiger. Panel Fa (Not yet reviewed by provider) Interpretation: Performing Lab:[facility], [address] [place] [phone] Notes/Report: Sodium 139 135-145 mmol/L Potassium 4.2 [...] yet reviewe d by provider) Interpretation: Performing Lab:[facility], [address] [place] [phone] Notes/Report: Triglycerides 148 <150 mg/dL Desirable Triglyceride: [...] t yet reviewed by provider) Interpretation: Performing Lab:[address] [phone] Notes/Report: PSA,Total (Free>4and<10) 0.51 0.00-4.00 ng/mL A [...] ye t reviewed by provider) Interpretation: Performing Lab:[address] [phone] Notes/Report: Creatinine Urine 137.27 Microalbumin Urine 56.0 Microalbum/Creatinine Ratio Ur 40.7 <30 ug/mg cr Albumin/Creatinine Ratio Reference Ranges: Normal: < 30 ug/mg creatinine Microalbuminuria: 30 - 300 ug/mg creatinine Clinical Albuminuria: > 300 ug/mg creatinine Hemoglobin A1c (Not yet revi ewed by provider) Interpretation: Performing Lab:[address] [phone] Notes/Report: Hemoglobin A1c % 5.2 <6.0 % [...] average glucose, using the formula of the T3X-Cqtpynx Average Glucose study (ADAG), Diabetes Care, Vol.31,#8, 2007 UA ClnCatch+Micro w/rflx Cul t (Not yet reviewed by provider) Interpretation: Performing Lab:[facility], [address] [place] [phone] Notes/Report: Urine, Clean Catch Color Urine Yellow Appearance Urine Clear PH 5.5 5.0-9.0 Glucose Urine UA Negative Negative mg/dL Urine Blood Moderate (2+) Negative Specific [place] - Urine 1.015 1.005-1.025 Urine Protein Negative Neg-Trace mg/dL Urine Ketones Negative Negative mg/dL Nitrite Urine Negative Negative Leukocyte Esterase Urine Negative Negative RBC Urine 11-20 0-2 /HPF WBC Urine 0-5 0-5 /HPF Squamous Epithelial Cell Urine 0-2 0-2 /HPF Bacteria Urine None Seen None Seen Hyaline Casts Urine 0-2 0-2 /LPF REASON FOR REFERRAL No Information MEDICATIONS Medication SIG (Take, Route, Frequency, Duration) Notes Start Date End Date Status Tamsulosin HCl 0.4 MG 1 capsule Orally O nce a day for 90 days 11/20/2022 Not-Taking Atorvastatin Calcium 20 MG 1 tablet Orally Once a day for 90 days 05/06/2024 Active IMMUNIZATIONS Vaccine Route Administration Date Status Comme nts Flu Vaccine Unknown 07/11/2011 Administered Flu Vaccine IM Intramuscular 08/10/2012 Administered TDaP IM Intramuscular 05/16/2014 Administered Fluarix Quadrivalent Unknown 07/22/2018 Refused Fluarix Quadrivalent Unknown 10/25/2018 Refused Fluarix Quadrivalent Unknown 10/31/2019 Refused Fluarix Quadrivalent Unknown 08/23/2020 Refused Fluarix Quadrivalent Unknown 11/09/2020 Refused Fluarix Quadrivalent Unknown 11/18/2021 Refused Covid Vaccine Unknown 11/18/2021 Refused Tetanus Unknown 05/16/2014 Pending SOCIAL HISTORY Tobacco Use: Social History Observation Description Date Details (start date - stop date) Never Smoker NA - NA Sex Assigned At : Social History Observation Description Sex Assigned At Unknown Tobacco Use/Smoking Question Answer Notes Patient is a nonsmoker Additional Findings: Tobacco Non-User Cu rrent non-smoker, currently using no form of tobacco Alcohol Screen Question Answer Notes Did you have a drink contain ing alcohol in the past year? Yes How often did you have a dri nk containing alcohol in the past year? Monthly or less (1 point) How many drinks did you have on a typical day when you were drinking in the past year? 1 or 2 drinks (0 point) How often did you have 6 or more drinks on one occasion in the past year? Never (0 point) Points 1 Interpretation Negative PROBLEMS Problem Type ICD Code Onset Dates Problem Status W/U Status Risk SNOMED Code Notes Problem Prostatism (N40.0) Active confirmed 114 67572 Problem Neutropenia, unspecified type (D70.9) Active confirmed 390518864 Problem Prediabetes (R73.03) Active confirmed 7 22527182 Problem Pure hypercholesterolemia (E78.00) Active confirmed 430689378 VITAL SIGNS Blood pressure diastolic 66 mm Hg 05/06/2024 Height 66 in 05/06/2024 Blood pressure systolic 104 mm Hg 05/06/2024 Weight 170 lbs 05/06/2024 BMI 27.44 kg/m2 05/06/2024 Encounters Encounter Location Date Provider Diagnosis Ramón Lieberman MD [address] [place] [id number] 10/27/2023 Ramón Lieberman Elevated BUN R79.9 ; Annual physical exam Z00.00 ; Prediabetes R73.03 ; Microscopic hematuria R31.29 ; Pure hypercholesterolemia E78.00 ; Prostatism N40.0 ; Neutropenia, unspecified type D70.9 ; Colon cancer screening Z12.11 and Depression screening Z13.31 Ramón Lieberman MD [address] [place] [id number] 01/26/2024 Ramón Lieberman Elevated BUN R79.9 Ramón Lieberman MD [address] [place] [id number] 10/24/2024 Ramón Lieberman Blood tests for rout ine general physical examination Z00.00 ; Pure hypercholesterolemia E78.00 ; Prediabetes R73.03 ; Neutropenia, unspecified type D70.9 and Prostatism N40.0 Ramón Lieberman MD [address] [place] [id number] 08/08/2024 Ramón Lieberman Prediabetes R73.03 a nd Pure hypercholesterolemia E78.00 Ramón Lieberman MD [address] [place], [place] [id number] 05/06/2024 Ramón Lieberman Pure hypercholestero lemia E78.00 and Elevated BUN R79.9 ASSESSMENTS Encounter Date Diagnosis Assessment Notes Treatment Notes Treatment Clinical Notes 10/27/2023 Elevated BUN (ICD-10 - R79.9) has been high in past. will recheck, will monitor, pending labs 10/27/2023 Annual physical exam (ICD-10 - Z00.00) labs reviewed and discussed with patient 01/26/2024 Elevated BUN (ICD-10 - R79.9) 10/24/2024 Pure hypercholestero lemia (ICD-10 - E78.00) 10/24/2024 Blood tests for rout ine general physical examination (ICD-10 - Z00.00) 08/08/2024 Prediabetes (ICD-10 - R73.03) 08/08/2024 Pure hypercholestero lemia (ICD-10 - E78.00) 05/06/2024 Elevated BUN (ICD-10 - R79.9) has come back down. will observe 05/06/2024 Pure hypercholestero lemia (ICD-10 - E78.00) eats poorly 10/27/2023 Prediabetes (ICD-10 - R73.03) doing well, no need formedication at this time 10/24/2024 Prediabetes (ICD-10 - R73.03) 10/27/2023 Microscopic hematuri a (ICD-10 - R31.29) has been evaluated 10/24/2024 Neutropenia, unspeci fied type (ICD-10 - D70.9) 10/27/2023 Pure hypercholestero lemia (ICD-10 - E78.00) stable, will continue current regiment 10/24/2024 Prostatism (ICD-10 - N40.0) 10/27/2023 Prostatism (ICD-10 - N40.0) stable, will continue to monitor 10/27/2023 Neutropenia, unspeci fied type (ICD-10 - D70.9) has resolved 10/27/2023 Colon cancer screeni ng (ICD-10 - Z12.11) guaiac negative 10/27/2023 Depression screening (ICD-10 - Z13.31) negative screen PLAN OF TREATMENT Pending Test Test Name Order Date Electrocardiogram (EKG) 09/06/2013 Electrocardiogram (EKG) 10/29/2018 Electrocardiogram (EKG) 11/04/2019 Complete Blood Count Auto Diff 5 Comprehensive Tiger. Panel Fast 5 Lipid Panel 10/24/2024 PSA,Total (Free>4and<10) 10/24/2024 Microalbumin, Random 10/24/2024 Hemoglobin A1c 10/24/2024 UA ClnCatch+Micro w/rflx Cult 10/24/2024 Next Appt Details Provider Name:Ramón Phillips ier, 10/31/2024 01:00:00 PM, [address] [facility], [address], [place], [place], [phone], Insurance Providers Payer Name Payer Address Payer Phone Subscriber Number Group Number Insured Name Patient Relationship to Insured Coverage Start Date Coverage End Date [address] [place] [phone] [id number] Vadim Richardson Self - patient is the insured MEDICAL (GENERAL) HISTORY Medical History History ICD Code 12/16/[address] Flores 01/17/20 Colonoscopy booked w/Dr. Meade [address] of abdomen for hem aturia and is negative
--- OUTSIDE RECORDS SUMMARY | 2024-10-24 13:59 | XMS_ITS ---
Author Organization Ramón Lieberman MD Address [address] [place], [place] [phone] Care Team Providers Care Order Entry Clerk Name Role Phone Ramón Lieberman Primary Care Provider RESULTS Component Value Reference Range Notes Liver Panel Reviewed date:08/08/2024 04:45:12 PM Interpretation: Performing Lab:[address] [phone] Notes/Report: Bilirubin Total 0.6 0.0-1.0 mg/dL Bilirubin Direct 0.2 0.0-0.5 mg/dL Aspartate Amino Transferase 42 5-37 U/L Alanine Aminotransferase 63 0-40 U/L Total Protein 6.8 6.5-8.0 g/dL Albumin Level 4.2 3.5-5.0 g/dL Alkaline Phosphatase 60 39-117 U/L Glucose Fasting Reviewed date:08/08/2024 04:45:21 PM Interpretation: Performing Lab:[address] [phone] Notes/Report: Glucose Fasting 109 60-99 mg/dL A fasting glucose from 100-125 mg/dl is considered impaired (pre-diabetes). Lipid Panel with Reflex Reviewed date:08/08/2024 04:45:41 PM Interpretation: Performing Lab:[facility], [address] [place] [phone] Notes/Report: Triglycerides 182 <150 mg/dL Desirable Triglyceride: [...] A1c Reviewed date:08/08/2024 01:01:36 PM Interpretation: Performing Lab:[facility], [address] [place] [phone] Notes/Report: Hemoglobin A1c % 5.3 <6.0 % [...] average glucose, using the formula of the K9Q-Smziqnq Average Glucose study (ADAG), Diabetes Care, Vol.31,#8, May. 2007 REASON FOR VISIT LIVER, LIPID PANEL FASTING Encounters Encounter Location Date Provider Diagnosis Ramón Lieberman MD [address] [facility] [address] [place] [id number] 08/08/2024 Ramón Lieberman Prediabetes R73.03 a nd Pure hypercholesterolemia E78.00 ASSESSMENTS Encounter Date Diagnosis Assessment Notes Treatment Notes Treatment Clinical Notes 08/08/2024 Prediabetes (ICD-10 - R73.03) 08/08/2024 Pure hypercholestero lemia (ICD-10 - E78.00) PLAN OF TREATMENT Next Appt Details Provider Name:Ramón mae, 10/31/2024 01:00:00 PM, [address] [place] [address], [address], [place], [place], [phone],
== END 2024-10-24 12:03 | disposition home or self-care (01) ==
LOC: HO.LNP 12:02
PROVIDERS: Visit Provider Internal Medicine
DX: Z00.00 Encounter for general adult medical examination without abnormal findings (principal); E78.00 Pure hypercholesterolemia, unspecified; R73.03 Prediabetes; D70.9 Neutropenia, unspecified; N40.0 Benign prostatic hyperplasia without lower urinary tract symptoms; Z12.5 Encounter for screening for malignant neoplasm of prostate
CPT/HCPCS: 80053; 80061; 81001; 82043; 82570; 83036; 84153; 85025

== ENCOUNTER 2025-05-05 09:49 | Outpatient (REF) | payer OTHER, SELFPAY ==
--- OUTSIDE RECORDS SUMMARY | 2025-05-05 10:02 | XMS_ITS | Patient Health Record ---
Author Organization Ramón Lieberman MD Address [address] [place], [place] [id number] Care Team Providers Care Nocturnist Name Role Phone Ramón Lieberman Primary Care Provider Allergies No Known Allergies Results Component Value Reference Range Notes Hold Gold Reviewed date:08/08/2024 01:02:04 PM Interpretation: Performing Lab:[address] [phone] Notes/Report: Luis Carlos Stiles See Note Specimen held untested for 24 hours; Call to request Chemistry testing. Liver Panel Reviewed date:08/08/2024 04:45:12 PM Interpretation: Performing Lab:[facility], [address] [place] [phone] Notes/Report: Bilirubin Total 0.6 0.0-1.0 mg/dL Bilirubin Direct 0.2 0.0-0.5 mg/dL Aspartate Amino Transferase 42 5-37 U/L Alanine Aminotransferase 63 0-40 U/L Total Protein 6.8 6.5-8.0 g/dL Albumin Level 4.2 3.5-5.0 g/dL Alkaline Phosphatase 60 39-117 U/L Glucose Fasting Reviewed date:08/08/2024 04:45:21 PM Interpretation: Performing Lab:[address] [phone] Notes/Report: Glucose Fasting 109 60-99 mg/dL A fasting glucose from 100-125 mg/dl is considered impaired (pre-diabetes). Lipid Panel with Reflex Reviewed date:08/08/2024 04:45:41 PM Interpretation: Performing Lab:[facility], [address] [place] [phone] Notes/Report: Triglycerides 182 <150 mg/dL Desirable Triglyceride: [...] A1c Reviewed date:08/08/2024 01:01:36 PM Interpretation: Performing Lab:[facility], [address] [place] [phone] Notes/Report: Hemoglobin A1c % 5.3 <6.0 % [...] average glucose, using the formula of the T0V-Wpafnqp Average Glucose study (ADAG), Diabetes Care, Vol.31,#8, May. 2007 Complete Blood Count Auto Di ff Reviewed date:10/24/2024 06:04:43 PM Interpretation: Performing Lab:[facility], [address] [place] [phone] Notes/Report: White Blood Count 5.6 4.8-10.8 X10*3/uL [...] NRBC Abs Auto 0.000 0.0-0.012 X10*3/uL Comprehensive [place]. Panel Fa st Reviewed date:10/24/2024 06:06:12 PM Interpretation: Performing Lab:[facility], [address] [place] [phone] Notes/Report: Sodium 139 135-145 mmol/L Potassium 4.2 [...] Alkaline Phosphatase 61 39-117 U/L Lipid Panel Reviewed date:10/24/2024 05:50:12 PM Interpretation: Performing Lab:[address] [phone] Notes/Report: Triglycerides 148 <150 mg/dL Desirable Triglyceride: [...] in patients with liver disease. PSA,Total (Free>4and<10) Reviewed date:10/24/2024 05:51:35 PM Interpretation: Performing Lab:[address] [phone] Notes/Report: PSA,Total (Free>4and<10) 0.51 0.00-4.00 ng/mL A [...] between 4.0 and 10.0 ng/mL. PSA methodology: CMOSIS nv Chemiluminescent Microparticle Immunoassay (CMIA) Microalbumin, Random Reviewed date:10/24/2024 05:50:49 PM Interpretation: Performing Lab:[address] [phone] Notes/Report: Creatinine Urine 137.27 Microalbumin Urine 56.0 Microalbum/Creatinine Ratio Ur 40.7 <30 ug/mg cr Albumin/Creatinine Ratio Reference Ranges: Normal: < 30 ug/mg creatinine Microalbuminuria: 30 - 300 ug/mg creatinine Clinical Albuminuria: > 300 ug/mg creatinine Hemoglobin A1c Reviewed date:10/24/2024 05:51:43 PM Interpretation: Performing Lab:[address] [phone] Notes/Report: Hemoglobin A1c % 5.2 <6.0 % [...] average glucose, using the formula of the O7O-Vwzyuka Average Glucose study (ADAG), Diabetes Care, Vol.31,#8, May. 2007 UA ClnCatch+Micro w/rflx Cul t Reviewed date:10/24/2024 05:49:35 PM Interpretation: Performing Lab:[address] [phone] Notes/Report: Urine, Clean Catch Color Urine Yellow Appearance Urine Clear PH 5.5 5.0-9.0 Glucose Urine UA Negative Negative mg/dL Urine Blood Moderate (2+) Negative Specific Cost - Urine 1.015 1.005-1.025 Urine Protein Negative Neg-Trace mg/dL Urine Ketones Negative Negative mg/dL Nitrite Urine Negative Negative Leukocyte Esterase Urine Negative Negative RBC Urine 11-20 0-2 /HPF WBC Urine 0-5 0-5 /HPF Squamous Epithelial Cell Urine 0-2 0-2 /HPF Bacteria Urine None Seen None Seen Hyaline Casts Urine 0-2 0-2 /LPF Hold Gold (Not yet reviewed by provider) Interpretation: Performing Lab:[address] [place] [address] Notes/Report: Hold Gold See Note Specimen held untested for 24 hours; Call to request Chemistry testing. Reason For Referral Reason ELEVATED BUN Diagnosis 1 Elevated BUN (R79.9) Referral Organization Ramón Lieberman MD Referring Provider First Name Ramón Referring Provider Last Name Luisana Referring Provider Speciality Internal M edicine Referred Provider ROQUE WOLFF Referred Provider Specialty Nephrology General Notes Isha Marin 11/04/2024 08:54:57 AM >[facility] CALLED [place] TO SCHEDULE APPT AND HE TOLD THEM HE WOULD CALL BACK IN SPRING TO SCHEDULE APPT AT THAT TIME, CLOSE CURRENT REFERRAL Referral Priority Routine Reason SCREEN FOR COLON CAN CER Diagnosis 1 Screening for colon cancer (Z12.11) Referral Organization Ramón Lieberman MD Referring Provider First Name Ramón Referring Provider Last Name Luisana Referring Provider Speciality Internal M edicine Referred Provider Nelson Walls Referred Provider Specialty Gastroentero logy General Notes Isha Marin 11/21/2024 09:15:23 AM >APPT SCHEDULED FOR 12/21/24 AT 12:40PM, PATIENT WAS A NO SHOW FOR APPT.HE MIGHT CALL TO R/S Referral Priority Routine Referral Appointment Date 12/21/2024 Medications Medication SIG (Take, Route, Frequency, Duration) Notes Start Date End Date Status Atorvastatin Calcium 20 MG 1 tablet Orally Once a day 05/06/2024 Active Tamsulosin HCl 0.4 MG 1 capsule Orally O nce a day for 90 days 11/20/2022 Not-Taking Immunizations Vaccine Route Administration Date Status Comme nts Flu Vaccine Unknown 07/11/2011 Administered Flu Vaccine IM Intramuscular 08/10/2012 Administered TDaP IM Intramuscular 05/16/2014 Administered Fluarix Quadrivalent Unknown 07/22/2018 Refused Fluarix Quadrivalent Unknown 10/25/2018 Refused Fluarix Quadrivalent Unknown 10/31/2019 Refused Fluarix Quadrivalent Unknown 08/23/2020 Refused Fluarix Quadrivalent Unknown 11/09/2020 Refused Fluarix Quadrivalent Unknown 11/18/2021 Refused Covid Vaccine Unknown 11/18/2021 Refused Tetanus Unknown 05/16/2014 Pending Social History Tobacco Use: Social History Observation Description Date Details (start date - stop date) Never Smoker NA - NA Tobacco Use/Smoking Question Answer Notes Patient is [...] Never (0 point) Points 1 Interpretation Negative Problems Problem Type SNOMED Code ICD Code Onset Dates Problem Status W/U Status Risk Notes Problem 95919630 Prostatism (N40.0) Active confirmed Problem 459910666 Neutropenia, unspecified type (D70.9) Active confirmed Problem 175510206 Prediabetes (R73.03) Active confirmed Problem 023969583 Pure hypercholesterolemia (E78.00) Active confirmed Vital Signs Blood pressure diastolic 80 mm Hg 10/31/2024 hanna ght is jup 6 pounds since 05-06-24 Height 66 in 10/31/2024 weight is jup 6 pounds since 05-06-24 Blood pressure systolic 122 mm Hg 10/31/2024 weig ht is jup 6 pounds since 05-06-24 Weight 176 lbs 10/31/2024 weight is jup 6 pounds since 05-06-24 BMI 28.4 kg/m2 10/31/2024 weight is jup 6 pounds since 05-06-24 Encounters Encounter Location Date Provider Diagnosis Ramón Lieberman MD [address] [place] [address] Drive [address] [place] [id number] 10/24/2024 Ramón Lieberman Blood tests for rout ine general physical examination Z00.00 ; Pure hypercholesterolemia E78.00 ; Prediabetes R73.03 ; Neutropenia, unspecified type D70.9 and Prostatism N40.0 Ramón Lieberman MD [address] [place] [address] Drive [address] [place] [id number] 05/05/2025 Ramón Lieberman Prediabetes R73.03 ; Pure hypercholesterolemia E78.00 and Elevated BUN R79.9 Ramón Lieberman MD [address] [place] [address] Drive [address] [place] [id number] 05/06/2024 Ramón Lieberman Pure hypercholestero lemia E78.00 and Elevated BUN R79.9 Ramón Lieberman MD [address] [place] [id number] 08/08/2024 Ramónwu Blisser Prediabetes R73.03 a nd Pure hypercholesterolemia E78.00 Ramón Lieberman MD [address] [place] [id number] 10/31/2024 Ramón Lieberman Elevated BUN R79.9 ; Annual physical exam Z00.00 ; Prediabetes R73.03 ; Pure hypercholesterolemia E78.00 ; Prostatism N40.0 ; Neutropenia, unspecified type D70.9 ; Colon cancer screening Z12.11 and Depression screening Z13.31 Assessments Encounter Date Diagnosis (ICD Code) Assessment Notes Treatment Notes Treatment Clinical Notes Section Notes 10/24/[address] ine general physical examination (ICD-10 - Z00.00) 10/24/2024 Pure hypercholesterolemia (ICD-10 - E78.00) 05/05/2025 Prediabetes (ICD-10 - R73.03) 05/06/2024 Pure hypercholesterolemia (ICD-10 - E78.00) eats poorly 05/06/2024 Elevated BUN (ICD-10 - R79.9) has come back down. will observe 08/08/2024 Prediabetes (ICD-10 - R73.03) 08/08/2024 Pure hypercholesterolemia (ICD-10 - E78.00) 10/31/2024 Elevated BUN (ICD-10 - R79.9) referral to nephrology/ REFERRAL TO BE FAXED TO DR ROQUE WOLFF 2 [facility] 10/31/2024 Annual physical exam (ICD-10 - Z00.00) labs reviewed and discussed with patient, referral to dr walls/ REFERAL MADE TO DR WALLS FOR FAXING TO [facility] 10/24/2024 Prediabetes (ICD-10 - R73.03) 05/05/2025 Pure hypercholesterolemia (ICD-10 - E78.00) 10/31/2024 Prediabetes (ICD-10 - R73.03) stable, will continue current regiment 10/24/2024 Neutropenia, unspeci fied type (ICD-10 - D70.9) 05/05/2025 Elevated BUN (ICD-10 - R79.9) 10/31/2024 Pure hypercholesterolemia (ICD-10 - E78.00) 10/24/2024 Prostatism (ICD-10 - N40.0) 10/31/2024 Prostatism (ICD-10 - N40.0) stable, will contiue to monitor 10/31/2024 Neutropenia, unspeci fied type (ICD-10 - D70.9) resolved 10/31/2024 Colon cancer screeni ng (ICD-10 - Z12.11) guaiac negative 10/31/2024 Depression screening (ICD-10 - Z13.31) negative screen Plan Of Treatment Pending Test Test Name Order Date Electrocardiogram (EKG) 10/29/2018 Electrocardiogram (EKG) 11/04/2019 Liver Panel 05/05/2025 Glucose Fasting 05/05/2025 Lipid Panel with Reflex 05/05/2025 Hold Gold 05/05/2025 Hemoglobin A1c 05/05/2025 Blood Urea Nitrogen 05/05/2025 Creatinine 05/05/2025 Next Appt Details Provider Name:Ramón mae, 06/01/2025 02:00:00 PM, [address] [place] [address], [address], [phone], Provider Name:Ramón mae, 10/31/2025 07:00:00 AM, [address] [place] [address], [address], [phone], Provider Name:Ramón mae, 11/07/2025 08:30:00 AM, [address] [place] [address], [address] [place] [address], [phone], Insurance Providers Payer Name Payer Address Payer Phone Subscriber Number Group Number Insured Name Patient Relationship to Insured Coverage Start Date Coverage End Date [address] [facility] [place] [phone] [id number] Lenore Richardson Self - patient is the insured Medical (General) History Medical History History ICD Code 12/16/[address] Flores 01/17/20 Colonoscopy booked w/Dr. Walls [address] of abd omen for hematuria and is negative never had colonoscopy is goining to get one 2024
[2025-05-05 10:34] LABS: Hemoglobin A1C 123.8248 umol/L; Total Hemoglobin (HGBA1C) 3702.3081 umol/L
[2025-05-05 10:50] LABS: Alanine Aminotransferase 28 U/L (0-40); Albumin Level 4.3 g/dL (3.5-5.0); Alkaline Phosphatase 65 U/L (39-117); Aspartate Amino Transferase 22 U/L (5-37); Blood Urea Nitrogen 22 mg/dL (9-16); Cholesterol 252 mg/dL (<200); Estimated Glomerular Filt Rate 52; HDL Cholesterol 47 mg/dL (>40); Total Protein 6.9 g/dL (6.5-8.0); Triglycerides 151 mg/dL (<150)
[2025-05-05 12:12] LABS: Reflex LDLD? No
== END 2025-05-05 09:50 | disposition home or self-care (01) ==
LOC: HO.LNP 09:49
PROVIDERS: Visit Provider Internal Medicine
DX: R73.03 Prediabetes (principal); R79.9 Abnormal finding of blood chemistry, unspecified; E78.00 Pure hypercholesterolemia, unspecified
CPT/HCPCS: 80061; 80076; 82565; 82947; 83036; 84520